=== PATIENT | female | born 1955 | race Caucasian/White ===

== ENCOUNTER → 2019-03-02 11:20 | Day surgery (SDC) | payer MEDICARE, OTHER ==
[~2019-03-02 11:20] MED LIST: Acetaminophen TAB* 325 MG PO PRN; Buffered Lidocaine 1% SYRIN* 1 ML/SYRINGE INTRADERM ONE; KETAMINE HCL* 50 MG/ML 10 ML VIAL ONE; Ketorolac INJ* 30 MG/ML 1 ML VIAL IV PRN; Lactated Ringers 1000 ML Bag* 1,000 ML IV SCH; Lidocaine 2% PF * 5 ML VIAL ONE; Naloxone* 0.4 MG/ML 1 ML VIAL IV PRN; Propofol* 10 MG/ML 20 ML BTL ONE; Propofol* 500 MG/50 ML BTL ONE
[2019-03-02 16:38] VITALS: BP 101/87
--- NOTE | 2019-03-06 22:49 | PRO ---
CC: Dameon Noland NP * DATE OF PROCEDURE: 03/02/19 [facility] PROCEDURE: Colonoscopy with jumbo and cold snare polypectomies. REFERRING PROVIDER: Dameon Noland NP INDICATION: The patient had minimal rectal bleeding in December. She has a maternal grandfather with history of colon cancer. Last colonoscopy was at age 48. MEDICATIONS: Given by Anesthesia. DESCRIPTION OF PROCEDURE: Full disclosure of risks were reviewed with the patient as detailed on the consent form. The patient was placed in the left lateral decubitus position and monitored with continuous pulse oximetry, capnography, interval blood pressure monitoring, and direct observation. After anorectal examination was performed, the adult colonoscope was inserted into the rectum and slowly advanced forward to the level of the cecum. Complete views of the cecum were obtained including the medial wall between the IC valve and appendiceal orifice. Quality of the prep was fair. Photodocumentation of landmarks obtained. Careful inspection was made as the colonoscope was withdrawn. Retroflexion was performed in the rectum. Findings and interventions are described below. FINDINGS: Anorectal exam demonstrated small external hemorrhoids. Scope was inserted into the rectum and slowly advanced forward to the level of the cecum. Scope was then slowly withdrawn. In the cecum, there was a 4-mm polyp, removed with jumbo biopsy forceps. In the ascending colon, there were 5 polyps. These polyps were measured 3 to 4 mm and removed with jumbo biopsy forceps. In the ascending colon, there was a 1 to 2 cm submucosal-appearing lesion. Positive pillow sign when probed with biopsy forceps. Endoscopically consistent with a lipoma. There was also several small AVMs seen in the right and transverse colon. In the ascending colon, there were also 2 polyps measuring 1 cm each, which were removed with cold snare. In the transverse colon, there were 2 polyps measuring 3 to 4 mm each, which were removed with jumbo biopsy forceps. In the rectum, there was 1 polyp measuring 4 mm, which was removed with jumbo biopsy forceps. Retroflexion in the rectum revealed internal hemorrhoids and hypertrophied anal papilla. Scope was then withdrawn from the patient. The patient tolerated the procedure well and was recovered in the GI recovery area. IMPRESSION: 1. Complete colonoscopy to cecum, 10 polyps removed as above. 2. Right-sided lipoma. 3. Small internal hemorrhoids. These are likely the source of the minimal rectal bleeding the patient had seen previously. FOLLOWUP: 1. Await pathology. 2. Anticipate repeat colonoscopy in 3 years given the number of the polyps as well as 2 polyps measuring 1 cm. 3. Recommend conservative management for hemorrhoids. Thank you very much for this referral. [id number] #: [id number] [place]
== END | disposition home or self-care (01) ==
LOC: OR 11:20
PROVIDERS: ATTEND Internal Medicine Gastroenterology
DX: K62.5 Hemorrhage of anus and rectum (principal); D12.2 Benign neoplasm of ascending colon; D12.3 Benign neoplasm of transverse colon; K63.5 Polyp of colon; G47.33 Obstructive sleep apnea (adult) (pediatric); C54.1 Malignant neoplasm of endometrium; E66.01 Morbid (severe) obesity due to excess calories; E03.9 Hypothyroidism, unspecified
CPT/HCPCS: 88305; J2704